=== PATIENT | female | born 1940 | race Caucasian/White ===

== ENCOUNTER 2017-04-10 09:55 | Emergency (ER) | payer MEDICARE, OTHER ==
[~2017-04-10] VITALS: Ht 167.6 cm; Wt 65.9 kg
[2017-04-10 10:06] VITALS: BP 192/71; PULSE 87; RESP 12; O2SAT 97
--- NOTE | 2017-04-10 10:36 | ED.REPORT ---
HPI-General Illness Date of Service Apr 10, 2017 ED Provider: Piter Fernando MD A 76 year old female with a history of hypertension and high cholesterol presents to the ED complaining of abdominal pain. The pain is an intermittent cramping, burning pain located in the middle of her abdomen and does not seem to radiate. The pain occurs daily in the late afternoon or evening and lasts for several hours. The pain is not relieved by anything and is accompanied by weight loss, diarrhea, nausea and vomiting. She denies fever, chills, rectal bleeding, vaginal bleeding or vaginal discharge. The pt was seen by her primary care physician five days ago without a definitive diagnosis. She was initially treated for constipation without relief. Nursing Notes Stated Complaint: STOMACH PAIN Chief Complaint: Female Abdominal Pain Nursing Notes Reviewed: Yes Allergies: Coded Allergies: Sulfa (Sulfonamide Antibiotics) (Verified Allergy, Intermediate, sick to stomach, 04/10/17) General Time Seen by MD: 10:36 Chief Complaint Abdominal pain Hx Obtained From: Patient Arrived By: Walk-in Sudden in Onset?: No Symptom Duration: Intermittent Location: : Abdomen Quality: Burning, Cramping, Painful Radiation: : Does not radiate Recent Healthcare: Recent doctor visit Similar Sx Previous: Yes Past Medical History Past Medical History hypertension high cholesterol pneumonia Past Surgical History Reports: Hysterectomy Smoking History Current Every Day Smoker (since 's) Ambulatory Status Independent Review of Systems denies rectal bleeding Full Review of Systems Constitutional: Denies: Chills, Fever Respiratory: Denies: Non-productive cough, Shortness of breath Cardiovascular: Denies: Chest pain GI: Reports: Abdominal pain, Diarrhea, Nausea, Vomiting Female: Denies: Vaginal bleeding - abnl, Vaginal discharge Musculoskeletal: Denies: Neck pain Skin: Denies Rash Complete sys rev & neg: except as marked. Physical Exam Constitutional: Well-developed, well-nourished. Not diaphoretic. Head: Normocephalic and atraumatic. Mouth/Throat: Oropharynx is clear and moist. No oropharyngeal exudate. Eyes: EOM are normal. Pupils are equal, round, and reactive to light. Neck: Supple, no tracheal deviation. Cardiovascular: Normal rate, regular rhythm. Equal and intact distal pulses throughout. Pulmonary/Chest: Effort normal and breath sounds normal. No respiratory distress. Abdominal: Soft. No distension. Mild diffuse tenderness to palpation. No focal tenderness. No rebound or guarding. Bowel sounds present. Musculoskeletal: Range of motion grossly intact, moving all extremities. No edema or tenderness appreciated. Neurological: AOx3. Grossly nonfocal exam. Strength and sensation intact and equal to bilateral upper and lower extremities. Skin: Warm and dry, no rashes or pallor appreciated. Psychiatric: Appropriate mood and affect. Behavior appears normal. Vital Signs Vital Signs Date Time Temp Pulse Resp B/P Pulse Ox O2 Delivery O2 Flow Rate FiO2 04/10/17 15:12 36.1 90 16 163/66 94 Room Air 04/10/17 14:02 36.1 90 16 163/66 94 Room Air 04/10/17 10:06 36.7 87 12 192/71 97 Room Air Initial VS: Reviewed Interpretation & Diagnostics Lab Results Interpretation Result Diagram: 04/10/17 1105 04/10/17 1105 Test 04/10/17 11:05 04/10/17 11:17 White Blood Count 6.0th/mm3 (3.8-10.1) Red Blood Count 4.43mil/mm3 (3.90-5.20) Hemoglobin 13.5g/dL (12.0-15.6) Hematocrit 40.1% (35.0-46.0) Mean Corpuscular Volume 90.5fL (81-100) Mean Corpuscular Hemoglobin 30.5pg (27.0-35.0) Mean Corpuscular Hemoglobin Concent 33.7% (32.0-37.0) Red Cell Distribution Width 13.4% (12.3-15.4) Platelet Count 325bil/L (150-400) Neutrophils (%) (Auto) 71.7% (40-74) Lymphocytes (%) (Auto) 17.3% (14-46) Monocytes (%) (Auto) 8.8% (4-12) Eosinophils (%) (Auto) 1.5% (0-5) Basophils (%) (Auto) 0.5% (0-3) Prothrombin Time 10.5sec (8.1-12.5) Prothromb Time International Ratio 0.98ratio Sodium Level 131mEq/L (134-144) Potassium Level 4.0mEq/L (3.5-5.2) Chloride Level 93mEq/L (97-108) Carbon Dioxide Level 23mmol/L (18-29) Blood Urea Nitrogen 8mg/dL (8-27) Creatinine 0.51mg/dL (0.57-1.00) Estimat Glomerular Filtration Rate 167mL/min (>59) Glucose Level 105mg/dL (60-99) Lactic Acid Level 1.0mmol/L (0.4-2.0) Calcium Level 9.8mg/dL (8.5-10.1) Magnesium Level 1.9mg/dL (1.6-2.6) Total Bilirubin 0.5mg/dL (0.0-1.2) Aspartate Amino Transf (AST/SGOT) 13U/L (0-50) Alanine Aminotransferase (ALT/SGPT) 8U/L (0-32) Alkaline Phosphatase 70U/L (25-165) Total Protein 7.5g/dL (6.4-8.4) Albumin 4.6g/dL (3.4-5.0) Lipase 34U/L (13-60) Urine Color Straw (YELLOW) Urine Appearance Hazy (CLEAR,HAZY) Urine pH 7.0 (5.0-8.0) Urine Specific Joseph 1.005 (1.003-1.035) Urine Protein Negativemg/dL (NEG,TRACE) Urine Glucose (UA) Negativemg/dL (NEGATIVE) Urine Ketones Negativemg/dL (NEGATIVE) Urine Occult Blood Negative (NEGATIVE) Urine Nitrite Negative (NEGATIVE) Urine Bilirubin Negative (NEGATIVE) Urine Urobilinogen Normalmg/dL (NORMAL) Urine Leukocyte Esterase Negative (NEGATIVE) Urine RBC 0-2/hpf (0-2) Urine WBC 0-5/hpf (0-5) Urine Epithelial Cells Occasional/hpf (NONE-MOD) Urine Crystals None seen (NONE SEEN) Urine Bacteria None/hpf (NONE-FEW) Urine Hyaline Casts None/lpf (NONE) Urine Granular Casts None seen (NONE SEEN) Urine Waxy Casts None seen (NONE SEEN) Urine Red Blood Cell Casts None seen (NONE SEEN) Urine White Blood Cell Casts None seen (NONE SEEN) Urine Mucus None seen (None Seen) Urine Trichomonas None seen (NONE SEEN) Urine Yeast None (NONE SEEN) Urinalysis Comment None Urine Culture Reflexed Not indicated ECG Interpretation ECG Interpretation: normal sinus rhythm with a rate of 79 Time: 10:44 Interpreted by: ED physician CT Abd / Pelvis Interpretation IMPRESSION: 1. No definite acute abnormality within the abdomen or pelvis. 2. Fusiform infrarenal abdominal aortic aneurysm measuring up to approximately 4.3 cm in diameter without evidence of dissection or rupture. 3. 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 4. Moderate residual stool within the colon may represent constipation. No bowel obstruction. 5. Mild bibasilar atelectasis within the lungs. 6. Small hiatal hernia. Dictated by: Akhil Gao M.D. on 04/10/2017 at 12:30 Approved by: Akhil Gao M.D. on 04/10/2017 at 12:45 Interpretation / Wet Read by: Interpret - Radiologist Re-Eval/Medical Decision Med Decision/Clinical Course In summary, 76-year-old female presenting to the ED for evaluation of several months of abdominal pain, worse over the past several days, however pain free at this time. Differential is broad and includes intra-abdominal mass, appendicitis, pancreatitis, cholecystitis, AAA, mesenteric ischemia, hernia, etc. Patient is well appearing at this time and does not have any symptoms. Initial laboratory studies notable for a lactate of 1, sodium of 131, lipase of 34. CBC grossly within normal limits. UA without evidence of infection. EKG demonstrates normal sinus rhythm with no acute ischemic changes and the patient has not been having any chest pain. CT scan of the patient's abdomen and pelvis demonstrates no definitive acute abnormality, however does show a 4.3 cm infrarenal abdominal aortic aneurysm without evidence of dissection or rupture, as well as high-grade narrowing of the superior mesenteric artery without occlusion. Given a lactate of 1 and no pain at this time, as well as no postprandial symptoms, it seems unlikely that mesenteric ischemia is entirely responsible for her symptoms, though possible. She will need her aortic aneurysm followed by vascular. I called her primary care physician's office as noted below and discussed the findings with them. They can follow up with her this week. Given her reassuring examination, no symptoms at this time, reasonable to discharge home with very careful return precautions and follow-up as scheduled. Patient agreeable to the plan as stated , no further questions. Time of Eval: 15:04 Re-Evaluation/Progress Note: Pt rechecked. Informed pt of plan for discharge. Pt understands and agrees with plan for discharge. F/U instructions and RTER warnings given. All questions addressed. Consultation : Call Returned at: 14:18 Drum Tender: Agrees with eval, Agrees with plan Note: Spoke with Machelle SCHAEFER from [facility] regarding pt's case. Pt will be scheduled for a follow up appointment and referred to vascular surgery. Counseled Regarding: Diagnosis, Lab results, Need for follow-up, When/why to return to ED Discharge & Departure Primary Impression: Abdominal pain Abdominal location: unspecified location Qualified Code: R10.9 - Unspecified abdominal pain Additional Impression: Abdominal aortic aneurysm (AAA) 3.0 cm to 5.0 cm in diameter in female Disposition: Home Discharge Condition All VS Reviewed: Yes Condition: Stable Additional Instructions: Thank you for allowing us to be a part of your care. Call your primary care physician to arrange a follow up appointment in the next several days for reassessment and to get a referral to vascular surgery and gastroenterology as discussed. Return to the emergency department if you develop any new or worsening symptoms, including lightheadedness, worsening abdominal pain, weakness, nausea, vomiting, or if there's anything else of concern to you. Referrals: (Family) Scribe Attestation Portions of this note were transcribed by Jake Briceno. I, Dr. Fernando personally performed the history, physical exam and medical decision-making; I reviewed and confirmed the accuracy of the information in the transcribed note. Piter Fernando MD Apr 10, 2017 10:36 JAKE BRICENO Apr 10, 2017 11:55 ALAYNA NUNEZ Apr 10, 2017 15:04
[2017-04-10] MEDS ORDERED: 0.9% Sodium Chloride 1,000 ML IV ONE (10:37)
[2017-04-10] MEDS ORDERED: Ondansetron 2 mg/mL 2 mL Inj IVPUSH PRN (10:40)
[2017-04-10] MEDS ORDERED: HYDROmorphone 0.5 mg/0.5 mL iSecure Syringe IVPUSH PRN (10:40)
[2017-04-10 11:29] LABS: APPEARANCE,URINE HAZY (CLEAR,HAZY); COLOR,URINE STRAW (YELLOW)
[2017-04-10 11:30] LABS: OCCULT BLOOD,URINE NEGATIVE (NEGATIVE); UROBILINOGEN,URINE NORMAL (NORMAL)
[2017-04-10 11:39] LABS: BASOPHILS % (AUTO) 0.5 % (0-3); EOSINOPHILS % (AUTO) 1.5 % (0-5); MONOCYTES % (AUTO) 8.8 % (4-12); Mean Corpuscular Hemoglobin 30.5 pg (27.0-35.0); Mean Corpuscular Volume 90.5 fL (81-100); NEUTROPHILS % (AUTO) 71.7 % (40-74); Platelet Count 325 bil/L (150-400)
[2017-04-10 11:49] LABS: Magnesium 1.9 mg/dL (1.6-2.6)
[2017-04-10 11:54] LABS: INR 0.98 ratio
--- NOTE | 2017-04-10 13:47 | DRSVH ---
PROCEDURE: CT ABDOMEN AND PELVIS WITH CONTRAST ([id number]) INDICATIONS: abdominal pain TECHNIQUE: After the administration of oral and intravenous contrast, 5 mm thick sections acquired from the diap hragms to the symphysis. 5 mm thick coronal and sagittal reformats were performed. For radiation do se reduction, the following was used: automated exposure control, adjustment of mA and/or kV accordi ng to patient size. COMPARISON: None. FINDINGS: Image quality: Diagnostic. ABDOMEN: Lung bases: There is mild scarring/atelectasis noted within the right middle lobe and lingula. Simil ar appearance is noted within the posterior margins of the bilateral lower lobes. The heart is troy l in size without a pericardial effusion. Solid organs: The liver is somewhat hypodense when compared to the spleen. No focal liver lesions ar e evident. The gallbladder is not enlarged weren't definitely inflamed. The spleen is normal in siz e. The adrenals are unremarkable. The pancreas is within normal limits. The kidneys are normal in size. There is no hydronephrosis. The ureters are normal in course and however. No intraluminal ca lculi are evident. Simple appearing left renal cyst is evident that measures up to approximately 2.0 cm in diameter. Peritoneum and bowel: There is a small hiatal hernia. The stomach, duodenum, and remainder of the sm all bowel loops are otherwise unremarkable. No significant small bowel dilatation is evident. The a ppendix is not definitely seen. Moderate residual stool is identified throughout the colon. There i s no bowel obstruction. No mesenteric inflammation is appreciated. There is no free fluid, loculate d fluid collection or free air. Nodes and vessels: No retroperitoneal or mesenteric adenopathy. Moderate to severe atherosclerotic irregularity is noted involving the abdominal aorta and iliac arteries. There is an infrarenal abdom inal aortic aneurysm noted that measures approximately 4.3 x 3.9 cm and extends for approximately 6 c m to the level of the aortic bifurcation. No aneurysm flap or periaortic hematoma is evident. Sever e atherosclerotic calcifications are noted at the origins of the celiac artery, superior mesenteric a rtery, and the left renal artery. These findings are more prominent involving the origin of the supe rior mesenteric artery with high-grade stenosis likely present with post stenotic dilatation. No occ lusion is evident. Bones: The bone mineralization is decreased. Age-appropriate degenerative changes of the lumbar spin e are noted. No acute fractures or suspicious osseous lesions are evident involving the image osseou s structures of the abdomen. PELVIS: Genitourinary: Bladder wall thickness is normal. Laxity of the pelvic floor is noted. The uterus i s surgically absent. The ovaries are not definitely seen. Miscellaneous: No inguinal hernias or adenopathy. No free fluid, loculated fluid collection or free air is evident within the pelvis. Bones: No suspicious bony lesions. No acute pelvic fractures are evident. There are mild degenerat emerson changes of the bilateral hips and sacroiliac joints. The bone mineralization is decreased. IMPRESSION: 1. No definite acute abnormality within the abdomen or pelvis. 2. Fusiform infrarenal abdominal aortic aneurysm measuring up to approximately 4.3 cm in diameter wi thout evidence of dissection or rupture. 3. 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 4. Moderate residual stool within the colon may represent constipation. No bowel obstruction. 5. Mild bibasilar atelectasis within the lungs. 6. Small hiatal hernia. Dictated by: Akhil Gao M.D. on 04/10/2017 at 12:30 Approved by: Akhil Gao M.D. on 04/10/2017 at 12:45
[2017-04-10 14:02] VITALS: BP_SYST 122; BP_SYST 163; BP_DIAS 66; BP_DIAS 80; PULSE 84; PULSE 90; RESP 16; O2SAT 94; O2SAT 97
[2017-04-10 15:12] VITALS: BP 163/66; PULSE 90; RESP 16; O2SAT 94
== END 2017-04-10 15:05 | disposition home or self-care (01) ==
LOC: SED 09:55
DX: I71.4 Abdominal aortic aneurysm, without rupture (principal); I10 Essential (primary) hypertension; E78.5 Hyperlipidemia, unspecified; F17.200 Nicotine dependence, unspecified, uncomplicated; Z87.01 Personal history of pneumonia (recurrent); Z88.2 Allergy status to sulfonamides
CPT/HCPCS: 36415; 74177; 80053; 81000; 83605; 83690; 83735; 85025; 85610; 93005; 96360; 99285; J7030; Q9967

== ENCOUNTER 2017-05-03 07:40 | Day surgery (SDC) | payer MEDICARE, OTHER ==
[~2017-05-03] VITALS: Ht 167.6 cm; Wt 63.5 kg
[~2017-05-03 07:40] MED LIST: 0.9% Sodium Chloride 1,000 ML IV SCH; CHOL200047 PO; HYDR12.55 PO; LOSA50TA37 PO; OMEG-38 PO; OMEP20CA11 PO; Sodium Chloride LOK Flush 10 mL Syringe IV PRN; fentaNYL-PF 50 mCg/mL 2 mL Inj IVPUSH PRN
[2017-05-03 08:07] VITALS: BP 148/68; PULSE 77; RESP 16; O2SAT 95
[2017-05-03 09:34] VITALS: BP 145/63; PULSE 82; RESP 12; O2SAT 93
[2017-05-03 09:45] VITALS: BP 181/86; PULSE 87; RESP 14; O2SAT 96
[2017-05-03 09:55] VITALS: BP 175/73; PULSE 89; RESP 12; O2SAT 94
--- NOTE | 2017-05-03 10:19 | ENDO ---
[address] [address] ENDOSCOPY PROCEDURE PATIENT: ELLIS ARTHUR : 1940 MR#: [id number] ADMIT: 05/03/2017 JOB ID: [id number] DATE OF SERVICE: 05/03/2017 TYPE OF OPERATION: 1. Esophagogastroduodenoscopy with biopsy. 2. Colonoscopy with biopsy. PREOPERATIVE DIAGNOSIS(ES): 1. Weight loss. 2. Gastroesophageal reflux disease. 3. Abdominal pain. POSTOPERATIVE DIAGNOSIS(ES): 1. Widely open, patent Schatzki ring. 2. Mild nonerosive gastritis. 3. 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 4. Mild erythema and ulcer seen in the proximal ascending colon, status post biopsy. 5. Small internal hemorrhoids. 6. A 2 mm sigmoid polyp, removed by cold biopsy forceps. ANESTHESIA: Fentanyl 125 mcg and Versed 7 mg IV administered. COMPLICATIONS: None. ESTIMATED BLOOD LOSS: Minimal. DESCRIPTION OF PROCEDURE: After risks and benefits were explained to the patient, informed consent was obtained. After anesthesia administered, upper endoscope was then inserted into the mouth, intubating through esophagus, stomach, second portion of duodenum. Mucosa carefully examined. After procedure was done, the scope withdrawn and the procedure terminated. Colonoscope was then inserted from rectum to cecum. Mucosa carefully examined. Prep of the patient was excellent. After procedure was done, the scope was withdrawn and the procedure terminated. FINDINGS: Upon inspection of the esophagus, there was a widely open, patent Schatzki ring. Z-line located at 38 cm from incisors. Upon entering the stomach, there was mild nonerosive gastritis that was seen. No ulcers or masses were seen. Retroflexion was normal. Duodenal bulb, first and second portions normal. Biopsies taken at the duodenum, antrum, body and distal esophagus. Upon inspection of the anus, no masses, hemorrhoids, ulcers, or fissures that were seen. Throughout the entire examination there were AVM seen in cecum and ascending colon, nonbleeding. There was an ulcer and mild erythema seen in the proximal ascending colon which was biopsied. There is also a 2 mm sigmoid polyp, removed by cold biopsy forceps. Retroflexion showed small internal hemorrhoids. IMPRESSION: 1. Small internal hemorrhoids. 2. A 2 mm sigmoid polyp, removed by cold biopsy forceps. 3. 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 4. Mild erythema and a small ulcer, 2 mm, clean based, nonbleeding, seen in the ascending colon proximal, status post biopsy. 5. Widely open, patent Schatzki ring. 6. Mild nonerosive gastritis. RECOMMENDATION: Await pathology results. Follow up with Christy Ennis PA-C in GI clinic. The patient should be on a proton pump inhibitor.
--- NOTE | 2017-05-08 12:05 | PATH ---
SURGICAL PATHOLOGY Attending Physician:Nam Hines MD CASE STATUS: Signed Out PATIENT NAME: ELLIS ARTHUR PID: [id number] : 1940 DATE COLLECTED:05/03/2017 16:33 SPECIMEN: 1: Duodenum, Biopsy 2: Stomach, Antrum, Biopsy 3: Gastric, Biopsy 4: Esophagus, Biopsy 5: Colon, Biopsy 6: Colon, Polyp CLINICAL HISTORY: EPIGASTRIC PAIN 1). ANTRUM BIOPSY 2). DUODENUM BIOPSY 3). GASTRIC BODY BIOPSY 4). DISTAL ESOPHAGUS BIOPSY 5). PROXIMAL ASCENDING COLON ULCER BIOPSY 6). SIGMOID COLON POLYP X1 FINAL DIAGNOSIS: 1.ANTRUM, BIOPSY: ANTRAL MUCOSA WITH NO DIAGNOSTIC ABNORMALITY. Negative for inflammation and Helicobacter organisms. Negative for intestinal metaplasia, dysplasia and malignancy. 2.DUODENUM, BIOPSY: NORMAL SMALL BOWEL MUCOSA. Negative for inflammation, histologic evidence of celiac disease, granulomas, dysplasia and malignancy. 3.GASTRIC BODY, BIOPSY: BODY-TYPE GASTRIC MUCOSA WITH NO DIAGNOSTIC ABNORMALITY. Negative for inflammation and Helicobacter organisms. Negative for intestinal metaplasia, dysplasia and malignancy. 4.DISTAL ESOPHAGUS, BIOPSY: SQUAMOUS MUCOSA WITH NO DIAGNOSTIC ABNORMALITY. Negative for inflammation, intestinal metaplasia, dysplasia and malignancy. 5.PROXIMAL ASCENDING COLON ULCER, BIOPSY: COLONIC MUCOSA WITH NO DIAGNOSTIC ABNORMALITY. AN ULCER IS NOT IDENTIFIED. Negative for inflammation, dysplasia and malignancy. 6.SIGMOID COLON POLYP, BIOPSY: HYPERPLASTIC POLYP. ICD10 R10.13 K63.5 GROSS DESCRIPTION: The specimen is received in six formalin filled containers labeled with the patient's name. 1). The specimen is labeled "antrum" and consists of 2 portions of tissue which aggregate to 0.3 x 0.3 x 0.2 CM. The specimen is entirely submitted in cassette 1A. 2). The specimen is labeled "duodenum" and consists of 2 portions of tissue which aggregate to 0.3 x 0.2 x 0.2 CM. The specimen is entirely submitted in cassette 2A. 3). The specimen is labeled "gastric body" and consists of a 0.4 x 0.2 x 0.2 CM portion of tissue which is entirely submitted in cassettes 3A. 4). The specimen is labeled "distal esophagus" and consists of a 0.2 x 0.2 x 0.2 CM portion of tissue which is entirely submitted in cassettes 4A. 5). The specimen is labeled "proximal ascending colon ulcer" and consists of a less than 0.1 CM portion of tissue which is entirely submitted in cassette 5A. 6). The specimen is labeled "sigmoid colon polyp" and consists of 2 portions of tissue which aggregate to 0.2 x 0.2 x 0.2 CM. The specimen is entirely submitted in cassette 6A. 05/03/2017DC MICRO DESCRIPTION: See diagnosis. ICD-9 CODES: CPT CODES: 1: 31767 2: 20100 3: 98338 4: 05592 5: 55464 6: 44693 Electronically Signed Out Ang Thomas MD, PhD [facility] [place] [address] Technical component performed at [facility], [facility] [address], [address]
== END 2017-05-03 23:59 | disposition home or self-care (01) ==
LOC: END 07:40
PROVIDERS: ATTEND Internal Medicine Gastroenterology
DX: K63.5 Polyp of colon (principal); K63.3 Ulcer of intestine; K64.8 Other hemorrhoids; K22.2 Esophageal obstruction; K29.70 Gastritis, unspecified, without bleeding; Q27.39 Arteriovenous malformation, other site; R10.13 Epigastric pain; R63.4 Abnormal weight loss; R93.5 Abnormal findings on diagnostic imaging of other abdominal regions, including retroperitoneum; I10 Essential (primary) hypertension; E78.00 Pure hypercholesterolemia, unspecified; K44.9 Diaphragmatic hernia without obstruction or gangrene; F17.210 Nicotine dependence, cigarettes, uncomplicated; Z68.23 Body mass index [BMI] 23.0-23.9, adult
CPT/HCPCS: 43239; 45380; 88305; 99153; G0500; J2250; J3010; J7030